=== PATIENT | male | born 1990 | race Caucasian/White ===

== ENCOUNTER 2023-02-20 15:46 | Emergency (ER) | payer OTHER, SELFPAY ==
[2023-02-20 15:51] VITALS: BP 132/92; PULSE 82; RESP 16; TEMP 36.3; O2SAT 96; BMI 37.3
--- NOTE | 2023-02-20 16:16 | PC.NURSE ---
Patient evaluated and discharged by provider prior to nursing assessment. Went over s/sx of a concussion and worrisom s/sx to return for. Patient acknowledged teaching on concussion home care including reducing screen time and resting frequently.
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
== END 2023-02-20 16:18 | disposition home or self-care (01) ==
PROVIDERS: Emergency Provider Student in an Organized Health Care Education/Training Program
DX: S09.90XA Unspecified injury of head, initial encounter (principal); V89.2XXA Person injured in unspecified motor-vehicle accident, traffic, initial encounter
CPT/HCPCS: 99281